=== PATIENT | female | born 1950 | race Caucasian/White ===

== ENCOUNTER → 2016-11-04 | Outpatient (CLI) | payer OTHER ==
[~2016-11-04] MED LIST: ACET-1138 PO; ASPEC325 PO; PRLSR20 PO; RXC5 PO
[2016-11-04 12:28] LABS: ESTIMATED AVERAGE GLUCOSE 126 mg/dl; HA1C FLAG Normal (Normal)
[2016-11-04 12:50] LABS: CHOLESTEROL/HDL RATIO 6.3
== END | disposition home or self-care (01) ==
LOC: C.LABPVFM 08:30
PROVIDERS: ATTEND Family Medicine
DX: Z00.00 Encounter for general adult medical examination without abnormal findings (principal); R73.01 Impaired fasting glucose

== ENCOUNTER → 2017-04-09 | Outpatient (CLI) | payer OTHER ==
[2017-04-09 13:29] LABS: ESTIMATED AVERAGE GLUCOSE 123 mg/dl; HA1C FLAG Normal (Normal)
[2017-04-09 13:32] LABS: CHOLESTEROL/HDL RATIO 5.6
== END | disposition home or self-care (01) ==
LOC: C.LABPVFM 08:10
PROVIDERS: ATTEND Family Medicine
DX: E78.5 Hyperlipidemia, unspecified (principal); R73.09 Other abnormal glucose

== ENCOUNTER → 2017-08-16 | Outpatient (CLI) | payer OTHER | END | disposition home or self-care (01) | LOC: C.PAPS 14:30 | PROVIDERS: ATTEND Obstetrics & Gynecology | DX: Z12.4 Encounter for screening for malignant neoplasm of cervix (principal) ==

== ENCOUNTER → 2017-08-17 | Outpatient (CLI) | payer OTHER ==
--- NOTE | 2017-08-17 16:01 | MAMMOGRAPHY REPORT ---
BILATERAL DIGITAL SCREENING MAMMOGRAM TOMOSYNTHESIS WITH CAD: 08/17/2017 TECHNIQUE: Breast tomosynthesis in addition to standard 2D mammography was performed. Current study was also evaluated with a Computer Aided Detection (CAD) system. COMPARISON: Comparison is made to exams dated: 08/16/2016 mammogram, 08/14/2015 mammogram, 08/13/2014 mammogram, 08/09/2013 mammogram, 08/02/2012 mammogram, and 07/14/2011 mammogram - [facility]. BREAST COMPOSITION: The tissue of both breasts is almost entirely fatty. FINDINGS: No suspicious masses, calcifications, or areas of architectural distortion are noted in ei ther breast. There has been no significant interval change compared to prior exams. Benign-appearing mass in the right upper outer anterior breast is stable to decreased compared to multiple prior exam s, and is therefore considered benign. IMPRESSION: ACR BI-RADS CATEGORY 2: BENIGN There is no mammographic evidence of malignancy. A 1 year screening mammogram is recommended. The pa tient will receive written notification of the results. Approximately 10% of breast cancers are not detected with mammography. A negative mammographic report should not delay biopsy if a clinically suggestive mass is present. Nerissa Zaragoza M.D. /:08/17/2017 09:21:46 Universal Grinder Operator: Ivy HENSLEY(Alicia)(M), [facility] letter sent: Normal 1/2 BI-RADS Code: ACR BI-RADS Category 2: Benign
== END | disposition home or self-care (01) ==
LOC: C.MAMM 08:43
PROVIDERS: ATTEND Obstetrics & Gynecology
DX: Z12.31 Encounter for screening mammogram for malignant neoplasm of breast (principal)

== ENCOUNTER → 2018-01-05 | Outpatient (CLI) | payer OTHER | END | disposition home or self-care (01) | LOC: C.MAMM 13:56 | PROVIDERS: ATTEND Family Medicine | DX: J01.00 Acute maxillary sinusitis, unspecified (principal); Z78.0 Asymptomatic menopausal state; M85.852 Other specified disorders of bone density and structure, left thigh ==

== ENCOUNTER 2021-10-26 05:03 | Observation (INO) ==
--- NOTE | 2021-04-01 12:01 | PAT Medication Instructions ---
Medication Instructions Date of Service April 01, 2021 Home Medications calcium 600 mg-D3 800 unit-mag11 50 gs-unpe-smfzgb-baldev-s.borat tablet (Caltrate 600-D Plus Minerals) 1 tab PO BID acetaminophen 650 mg tablet,extended release 1,300 mg PO Q12H PRN clobetasol 0.05 % topical ointment 1 appln TOP BID PRN metformin 500 mg tablet 500 mg PO BID omeprazole 20 mg capsule,delayed release 20 mg PO QAM STOP taking 24 hours before surgery clobetasol 0.05 % topical ointment 1 appln TOP BID PRN DO NOT take the morning of surgery calcium 600 mg-D3 800 unit-mag11 50 fl-eksv-huahwt-baldev-s.borat tablet (Caltrate 600-D Plus Minerals) 1 tab PO BID metformin 500 mg tablet 500 mg PO BID Take morning of surgery With a small sip of water, OTHERWISE NOTHING TO EAT OR DRINK AFTER MIDNIGHT: acetaminophen 650 mg tablet,extended release 1,300 mg PO Q12H PRN (okay to take up to 4 hours prior to surgery if needed) omeprazole 20 mg capsule,delayed release 20 mg PO QAM Take evening before surgery calcium 600 mg-D3 800 unit-mag11 50 mi-crou-zoqkzt-baldev-s.borat tablet (Caltrate 600-D Plus Minerals) 1 tab PO BID acetaminophen 650 mg tablet,extended release 1,300 mg PO Q12H PRN (if needed) metformin 500 mg tablet 500 mg PO BID Other Notes If you have any questions please call us at [phone] or [phone] or [phone] or [phone]
--- NOTE | 2021-04-03 11:20 | Anesthesiology Consultation ---
Date of Service April 03, 2021 Assessment & Plan (1) Encounter for pre-operative examination: - COVID screening: Per assessment on 04/03: Travel screen negative, no known COVID-19 positive contacts or current COVID-19 related symptoms. Patient was COVID positive 12/11/20 ([facility])> symptoms at time of chills, achiness, fever, diarrhea, loss of taste/smell > symptoms resolved, pt since fully vaccinated. Surgeon arranging preop COVID testing. Awaiting results. - S/P Right SILVER (03/30/16): SAB at L3-L4 (x1 attempt) at [facility]. Per anesthesia record pt "c/o nausea, pt diaphoretic, sat pt up, VSS, Zofran given, change mask to NC, after 1 min pt states feeling better, VSS, positioned per surgeon. No issues per post-op anesthesia progress note. - Check BSG AM DOS Chart Review Chart Review: Acceptable Risk for Surgery and Patient seen in Pre Admission Testing Teaching & Discussion Pre-Anesthesia Teaching/Discussion Notes: Instructed NPO after midnight before surgery,except medications with 15 cc of water. Medication instructions provided according to the PAT guidelines. History Surgery Operation Date: 05/26/21 08:50 Proposed Procedures p Left Total Knee Replacement - Carlos Sánchez MD Height/Weight Height: 5 ft 1 in Weight: 68 kg Allergies Allergy/AdvReac Type Severity Reaction Status Date / Time amoxicillin [From Augmentin] Allergy Mild Diarrhea Verified 04/01/21 08:01 clavulanic acid Allergy Mild Diarrhea Verified 04/01/21 08:01 [From Augmentin] clindamycin Allergy Mild Diarrhea Verified 04/01/21 08:01 Medications Home Medications Medication Instructions Recorded Confirmed Last Taken calcium 600 mg-D3 800 unit-mag11 1 tab PO BID 03/19/19 04/01/21 04/10/19 18:00 50 ji-svip-nxxpoj-baldev-s.borat tablet (Caltrate 600-D Plus Minerals) acetaminophen 650 mg 1,300 mg PO Q12H PRN 04/01/21 04/01/21 Unknown tablet,extended release clobetasol 0.05 % topical ointment 1 appln TOP BID PRN 04/01/21 04/01/21 Unknown metformin 500 mg tablet 500 mg PO BID 04/01/21 04/01/21 Unknown omeprazole 20 mg capsule,delayed 20 mg PO QAM 04/01/21 04/01/21 Unknown release Past Medical History Medical History Diabetes mellitus, type 2 NIDDM GERD without esophagitis History of COVID-19 Dx 12/11/20 ([facility])> symptoms at time of chills, achiness, fever, diarrhea, loss of taste/smell > symptoms resolved, pt since fully vaccinated Hyperlipidemia No meds Osteoporosis Rectocele Exercise / Class Metabolic Activity II 4-5 Yardwork/Stairs/Walk up hill (one FS (no CP, no SOB)) Past Family History Family History Father Colorectal cancer Other No family history of adverse response to anesthesia Denies family history of Ovarian cancer Prostate cancer Myocardial infarction Breast cancer Bleeding disorder Past Surgical History Surgical History History of appendectomy History of colonoscopy History of right knee surgery age 1.5 years ago (I&D infection) History of tonsillectomy History of total right hip replacement History of wisdom tooth extraction Past Anesthesia History No Hx of Anesthesia Complications (except PONV), No Family Hx of Anesthesia Complications and Other Right SILVER (03/30/16): SAB at L3-L4 (x1 attempt) at [facility] Per anesthesia record pt "c/o nausea, pt diaphoretic, sat pt up, VSS, Zofran given, change mask to NC, after 1 min pt states feeling better, VSS, positioned per surgeon. No issues per post-op anesthesia progress note. History of PONV No Hx of Motion Sickness and History of PONV Social History Smoking Status: Never smoker Do You Dip or Chew Tobacco: No Hx Alcohol Use: No Hx Substance Use: No substance use type: does not use Review of Systems Patient denies chest pain, shortness of breath, dyspnea on exertion, fever, chills, cough, wheezing, palpitations. Physical Exam Vital Signs VITALS BP 124/77 P 72 TEMP 98.1 SP02 96%RA RESP 16 PHYSICAL Full cervical extension range of motion. Full TMJ range of motion. TMD 3 finger breaths Mallampati Score 1 Dentition: intact, + crown Lungs: clear throughout to auscultation Cardiac: regular rate and rhythm, no murmurs noted Spine: normal Carotid arteries: negative bruit Extremities: no edema Lab Results Anesthesia Preop Results Results Anesthesia Widget: WBC 6.10 K/uL (4.8-10.8) 04/03/21 Hgb 13.9 g/dL (12.0-16.0) 04/03/21 Hct 40.5 % (37-47) 04/03/21 Plt 259 K/uL (130-400) 04/03/21 Na 142 mmol/L (136-145) 04/03/21 K 4.4 mmol/L (3.5-5.1) 04/03/21 Cl 111 mmol/L (98-107) H 04/03/21 CO2 27 mmol/L (21-32) 04/03/21 BUN 22 mg/dl (7-18) H 04/03/21 Creat 0.68 mg/dl (0.6-1.2) 04/03/21 Glucose Level 79 mg/dl (70-99) 04/03/21 PT 10.4 Seconds (9.0-12.0) 04/03/21 PTT 26.1 Seconds (21.0-31.0) 04/03/21 INR 1.0 (0.9-1.1) 04/03/21 HA1c 5.8 % (4.5-5.6) H 04/03/21 Blood Type O Positive 04/03/21 Antibody Screen NEGATIVE 04/03/21 Testing Electrocardiogram Date: 04/03/21 NSR at 68bpm. Low voltage QRS. No significant change compared to 02/12/16 per linux systems analyst review. Chest X-Ray Date: 04/03/21 Findings: + NAD
--- NOTE | 2021-10-22 15:53 | Anesthesiology Consultation ---
Date of Service October 22, 2021 Assessment & Plan (1) Encounter for pre-operative examination: Chart Review Chart Review: Acceptable Risk for Surgery (pending preop Covid testing results ) and Patient NOT seen in Pre Admission Testing - Check BSG AM DOS Per nursing assessment 09/09/2021, patient denies any recent travel. No known Covid infection in the past 90 days. Patient is fully vaccinated for Covid. No known Covid positive exposures or Covid related symptoms. Preop Covid testing results 10/22/21= results pending History Surgery Operation Date: 09/22/21 14:20 Proposed Procedures p Left Total Knee Replacement - Carlos Sánchez MD Operation Date: 10/26/21 07:15 Proposed Procedures p Left Total Knee Arthroplasty - Carlos Sánchez MD Height/Weight Height: 5 ft 1 in Weight: 67.132 kg Allergies Allergy/AdvReac Type Severity Reaction Status Date / Time amoxicillin [From Augmentin] AdvReac Mild Diarrhea Verified 09/10/21 09:56 clavulanic acid AdvReac Mild Diarrhea Verified 09/10/21 09:56 [From Augmentin] clindamycin AdvReac Mild Diarrhea Verified 09/10/21 09:56 Medications Home Medications Medication Instructions Recorded Confirmed Last Taken calcium 600 mg-D3 800 unit-mag11 1 tab PO BID 03/19/19 09/10/21 04/10/19 18:00 50 pd-cnyi-dfqnmx-baldev-s.borat tablet (Caltrate 600-D Plus Minerals) acetaminophen 650 mg 1,300 mg PO Q12H PRN 04/01/21 09/10/21 Unknown tablet,extended release omeprazole 20 mg capsule,delayed 20 mg PO QAM 04/01/21 09/10/21 Unknown release clobetasol 0.05 % topical ointment 1 applic TOP BID PRN #45 g 06/10/21 09/10/21 Unknown metformin 500 mg tablet 500 mg PO BID #60 tab 09/07/21 09/10/21 Unknown Past Medical History Medical History (Updated 10/22/21 @ 15:49 by Zoe Alvarenga PA-C) Blood pressure elevated without history of HTN Controlled per 06/2021 PCP note Diabetes mellitus, type 2 NIDDM GERD without esophagitis History of COVID-19 Dx 12/11/20 ([facility])> symptoms at time of chills, achiness, fever, diarrhea, loss of taste/smell > symptoms resolved, pt since fully vaccinated Hyperlipidemia No meds Osteoporosis Rectocele Past Family History Family History Father Colorectal cancer Other No family history of adverse response to anesthesia Denies family history of Ovarian cancer Prostate cancer Myocardial infarction Breast cancer Bleeding disorder Past Surgical History Surgical History History of appendectomy History of colonoscopy History of right knee surgery History of tonsillectomy History of total right hip replacement History of wisdom tooth extraction Past Anesthesia History Right SILVER (03/30/16): SAB at L3-L4 (x1 attempt) at [facility] Per anesthesia record pt "c/o nausea, pt diaphoretic, sat pt up, VSS, Zofran given, change mask to NC, after 1 min pt states feeling better, VSS, positioned per surgeon. No issues per post-op anesthesia progress note. Social History Smoking Status: Never smoker Do You Dip or Chew Tobacco: No Hx Alcohol Use: No Hx Substance Use: No substance use type: does not use Lab Results Anesthesia Preop Results Results Anesthesia Widget: WBC 6.37 K/uL (4.8-10.8) 10/22/21 Hgb 14.4 g/dL (12.0-16.0) 10/22/21 Hct 43.3 % (37-47) 10/22/21 Plt 263 K/uL (130-400) 10/22/21 Na 140 mmol/L (136-145) 10/22/21 K 3.9 mmol/L (3.5-5.1) 10/22/21 Cl 104 mmol/L (98-107) 10/22/21 CO2 30 mmol/L (21-32) 10/22/21 BUN 22 mg/dl (6-23) 10/22/21 Creat 0.77 mg/dl (0.6-1.2) 10/22/21 Glucose Level 101 mg/dl (70-99(Fasting)) H 10/22/21 PT 10.4 Seconds (9.0-12.0) 10/22/21 INR 1.0 (0.9-1.1) 10/22/21 Blood Type O Positive 10/22/21 Antibody Screen NEGATIVE 10/22/21 Testing Electrocardiogram Date: 04/03/21 NSR at 68bpm. Low voltage QRS. No significant change compared to 02/12/16 per technical education teacher review. Chest X-Ray Date: 04/03/21 Findings: + NAD
--- NOTE | 2021-10-24 09:59 | History and Physical Report ---
DATE OF ADMISSION: 10/26/2021. CHIEF COMPLAINT: Persistent left knee pain and discomfort. HISTORY OF PRESENT ILLNESS: The patient is a 71-year-old female who presents for surgical treatment of her left knee. She has got a long history of left knee pain and discomfort. She describes it has gotten worse over time. She has been through extensive conservative treatment including injections, which provided minimal relief for a short period of time. Pain is mostly medial. It increased with weightbearing. She has been scheduled for surgery multiple times. Scheduled the last year and then broke her humerus. She has recovered from that and now she has been rescheduled a couple times due to the COVID issues. Continues to be limited by her knee pain. She would now like to have her knee fixed. PAST MEDICAL HISTORY: Significant for: 1. Diabetes with an A1c of 5.7. 2. Low back pain/sciatica. PAST SURGICAL HISTORY: Includes: 1. Right hip replacement done by myself 03/30/2016. 2. Left knee arthroscopy done by Dr. Hester in 1997. ALLERGIES: None. CURRENT MEDICATIONS: 1. Metformin 500 mg twice a day. 2. Prilosec 20 mg. 3. Caltrate. SOCIAL HISTORY: A 71-year-old female. She is . Does not smoke. FAMILY HISTORY: Noncontributory. REVIEW OF SYSTEMS: Significant for diabetes pretty well controlled. No chest pain or shortness of b reath. No history of DVT or PE. PHYSICAL EXAMINATION: GENERAL: Shows a pleasant, fairly tiny female. HEENT: Benign. NECK: Supple. No lymphadenopathy. LUNGS: Clear to auscultation. HEART: Regular rate and rhythm. ABDOMEN: Soft, nontender, nondistended. EXTREMITIES: Grossly neurovascularly intact except as follows. Examination of the left knee reveals the patient ambulates with just a slight bit of a limp. She has got varus alignment to her knee. She has got bony hypertrophy medially. Small knee effusion. Rang e of motion is 5-125. No instability. No pain with hip motion. X-RAYS: X-rays of the left knee from previously reviewed. It shows advanced left knee degenerative joint disease. She has got complete loss of medial joint space. The rest of the knee looks pretty g ood. A little bit of subchondral sclerosis. Small osteophytes. ASSESSMENT: A 71-year-old white female with advanced left knee medial compartment degenerative joint disease. She has failed conservative treatment. She would like to have her left knee replaced. Brianna osullivan does have a history of right hip replacement in the past. She is also diabetic but with pretty wel l controlled blood glucoses. Also has a history of knee arthroscopy. PLAN: We are going to take her to the operating room and do left total knee replacement. The risks and benefits of this procedure were explained to the patient include but not limited to DVT, PE, deat h, infection, neurological injury, vascular injury, bleeding problem, pain, limited range of motion, stiffness, failure to relieve her symptoms, incomplete relief of symptoms, need for further surgery i n the future, fracture, leg length inequality, nerve palsy, etc. The patient understands and desires to proceed. Informed consent was obtained. Patient has had her hip replaced in the past. I did talk to her about knee replacement surgery and i t is typically a bit more painful, more difficult recovery than hip surgery. She is aware that. She knows to hold her metformin on the morning of surgery. Job ID: [id number]
[~2021-10-26 05:03] MED LIST changes: -ACET-1138 PO; +ACETAMINOPHEN 500 MG TAB PO SCH; -ASPEC325 PO; +BUPIVACAINE LIPOSOME/PF 266 MG, BUPIVACAINE/EPINEPHRINE 50 ML, SODIUM CHLORIDE 0.9% 30 ... INFIL SCH; +FAMOTIDINE 20 MG TAB PO SCH; +GABAPENTIN 300 MG CAP PO SCH; +LR 500ML BOLUS, THEN 15ML/HR IV SCH; +LR 60ML/HR IV SCH; -PRLSR20 PO; -RXC5 PO; +TRANEXAMIC ACID 1,000 MG **IV Intra-op IV SCH; +ceFAZolin 2000MG 2,000 MG/15 ML SYR IV SCH
[2021-10-26] MEDS ORDERED: TRANEXAMIC ACID 1,000 MG **IV Intra-op IV SCH (06:00)
[2021-10-26] MEDS ORDERED: ceFAZolin 2000MG 2,000 MG/15 ML SYR IV SCH (06:00)
[2021-10-26] MEDS ORDERED: FAMOTIDINE 20 MG TAB PO SCH (06:00)
[2021-10-26] MEDS ORDERED: ACETAMINOPHEN 500 MG TAB PO SCH (06:00)
[2021-10-26] MEDS ORDERED: LR 60ML/HR IV SCH (06:00)
[2021-10-26] MEDS ORDERED: BUPIVACAINE LIPOSOME/PF 266 MG, BUPIVACAINE/EPINEPHRINE 50 ML, SODIUM CHLORIDE 0.9% 30 ... INFIL SCH (06:00)
[2021-10-26] MEDS ORDERED: GABAPENTIN 300 MG CAP PO SCH (06:00)
[2021-10-26] MEDS ORDERED: fentaNYL citrate 100 MCG/2 ML VIAL ONE (06:26)
[2021-10-26] MEDS ORDERED: MIDAZOLAM HCL 1 MG/ML 2ML VIAL ONE (06:26)
[2021-10-26] MEDS ORDERED: LIDOCAINE 2% 2 ML VIAL/AMP(20MG/ML) INFIL ONE (06:33)
[2021-10-26] MEDS ORDERED: PROPOFOL IV EMULSION 10 MG/ML 20 ML VIAL IV ONE (06:33)
[2021-10-26] MEDS ORDERED: BUPIVACAINE 0.5 % 5 MG/1 ML PF 10ML VIAL ONE (06:38)
[2021-10-26] MEDS ORDERED: ROPIVACAINE 0.5% 5 MG/ML 30 ML VIAL ONE (06:38)
[2021-10-26] MEDS ORDERED: ONDANSETRON INJ 2 MG/ML 2 ML VIAL ONE (06:41)
[2021-10-26] MEDS ORDERED: HYDROmorphone INJ 2 MG/ML SYR/VIAL IV PRN (06:50)
[2021-10-26] MEDS ORDERED: ePHEDrine sulfate 50 MG/ML AMP IV PRN (06:50)
[2021-10-26] MEDS ORDERED: fentaNYL citrate 100 MCG/2 ML VIAL IV PRN (06:50)
[2021-10-26] MEDS ORDERED: ONDANSETRON INJ 2 MG/ML 2 ML VIAL IV PRN ×2 (06:50→10:04)
[2021-10-26] MEDS ORDERED: ATROPINE SULFATE 0.1 MG/ML 10ML SYR IV PRN (06:50)
[2021-10-26] MEDS ORDERED: SCOPOLAMINE 1 MG TDSY TD ONE (06:53)
[2021-10-26] MEDS ORDERED: SODIUM CHLORIDE 0.9% PF 50 ML VIAL ONE (06:57)
[2021-10-26] MEDS ORDERED: BUPIVACAINE/EPINEPHRINE 0.25% 1:200,000 30 ML VIAL ONE (06:57)
[2021-10-26] MEDS ORDERED: BUPIVACAINE LIPOSOME 1.3% 266 MG/20 ML VIAL ONE (06:58)
--- NOTE | 2021-10-26 07:02 | History & Physical Bridge Note ---
Date of Service October 26, 2021 History & Physical Bridge Note I have examined the patient, reviewed the History & Physical and in the interval since the performance of the History & Physical I have noted the following changes of clinical significance: no changes noted
[2021-10-26] MEDS ORDERED: DEXAMETHASONE SOD INJ 4 MG/ML VIAL ONE (08:20)
[2021-10-26] MEDS ORDERED: PHENYLEPHRINE HCL 10 MG/ML VIAL ONE (08:20)
[2021-10-26] MEDS ORDERED: METOCLOPRAMIDE HCL INJ 5 MG/ML 2 ML VIAL ONE (08:20)
--- NOTE | 2021-10-26 09:05 | Operative Report ---
PG Post Operative Report Pre & Post Diagnosis Operation Date: 09/22/21 14:20 <No data on this case meets the specified criteria> Operation Date: 10/26/21 07:15 Pre-Op Diagnosis: Left Knee Advanced Degenerative Joint Disease Post-Op Diagnosis: Left Knee Advanced Degenerative Joint Disease I identified the patient and participated in the time-out.: Yes Procedure Operation Date: 09/22/21 14:20 <No data on this case meets the specified criteria> Operation Date: 10/26/21 07:15 Actual Procedures p Left Total Knee Replacement(Left) - Carlos Sánchez MD Surgeon Carlos Sánchez MD Clock Smith Christ Ballard PA-C Estimated Blood Loss 50 Findings Consistent with Post-Op Diagnosis Operative findings were advanced left knee DJD. She extensive grade 4 [id number] disease of the medial femoral condyle medial tibial plateau. She pretty extensive grade 4 disease of the patellofemoral compartment as well. She had a varus deformity to her knee. Slight flexion contracture. Moderate-sized joint effusion. Fluids 1000 cc Specimens Left knee sent for pathology Drains None Anesthesia Type Spinal MAC Complications none Disposition Accompanied Patient To Recovery: No Indications Patient 71-year-old female has had a long history of a left knee pain discomfort describes gotten worse over the years. She is actually scheduled for knee replacement the past but fell and broke her humerus. This was then put off for a while. She continues to be debilitated by her knee pain. She now proceeds with total knee arthroplasty. She has recovered from her humerus fracture now. Description of Procedure Operative implants consist of: 1. Biomet Vanguard size 62.5 left posterior stabilized femoral component. 2. Biomet size 67 tibial tray. 3. 10 mm posterior stabilized polyethylene insert. 4. 28 x 8 all polypatella. The patient was taken to the operating, identified, and placed on the operating table supine position protectors were properly padded. IV antibiotics tried by anesthesia team. A spinal anesthetic and abductor canal block had provided in the holding area. A Bruner catheter was placed in sterile fashion. A left thigh turn was then placed in the left lower extremities and prepped draped in usual sterile fashion. The left leg was elevated exsanguinated with use of an Esmarch in terms playset 300 mmHg. An anterior approach left knee was then performed to longitudinal incision centered over the patella. Sharp dissection was carried through subcutaneous this down the extensor mechanism. A medial parapatellar arthrotomy incision was made. Some subperiosteal dissection was carried out medially. The fat pad was resected from each patella tendon. Lateral patellofemoral ligament was released. Patella was subluxated laterally and the knee was flexed. The osteophytes were taken off distal femur P the ACL and PCL were then released and distal femur the tibia subluxated anteriorly. The external tibial en bloc was then placed in the interface the tibia and adjusted 14 mm medially. Proximal tibial cut was made remove a millimeter or 2 of bone from most deficient aspect medial till plateau. Some osteophytes were taken off medial and posterior medially. We sized the tibia to a size 67. Attention drawn the femur. The distal femur was entered with a sharp drop with intramedullary canal was suction. A left 5 degree valgus cutting guide was placed. The distal femoral cutting block was pinned in place. Distal femoral cut was made to take an additional 3 mm of bone off distal femur. The femur was then sized to a size 62.5. The AP cutting block was pinned parallel to the epicondylar axis which was 5 degrees of external rotation. Anterior cut, anterior chamfer, posterior cut, posterior chamfer cuts were made. The box cutting guide was placed in just slight lateral box cut was made. The knee was flexed. The remnants of the medial and lateral menisci were excised. The osteophyte taken off the posterior aspect the femur. Trial femoral component was placed. The tibial tray was pinned in maximum external rotation and the drill and stem punch were used to create defect in proximal tibia for the tibial tray. Knee was then trialed and the 10 mm insert fit most appropriately. Attention drawn the patella. Patella was cleaned of all soft tissues. Patella thickness measured 21 mm in thickness was cut down to 12. Was sized to a size 28 patella. The lug holes w ere drilled for the 28 patella. The lateral osteophyte is moved. Patella button was placed. Knee was taken through range of motion patella tracked nicely with no thumbs test. Attention drawn to placing permanent components. All trial components were removed. Bone plug was placed into the distal femur limit blood loss. Double batch Palacos G cement was mixed. BiomCRAVEguard size 62.5 left posterior stabilized femoral component, size 67 tibial tray, a 10 mm posterior stabilized polyethylene insert, and a 28 x 8 all polypatella were then cemented in place. Knee was brought out into full extension total cement hardened. Final cement checkup then performed. The pericapsular tissues were injected with total 100 cc of combination of 20 cc of Exparel, 30 cc normal saline, 50 cc of quarter percent Marcaine with epinephrine. Patient did receive 1 g tranexamic acid. The tourniquet was let down for tourniquet time 51 minutes. Hemostasis assured use electrocautery. Wounds were cleansed and irrigated. The extensor mechanism closed with combination 1 PDS suture #1 Vicryl suture in [id number] fashion. Extensor mechanism checked found to be intact the subcutaneous tissue then closed with 2 Dexon suture in a buried fashion skin was closed skin tomeka. Leg was then cleaned and dried a sterile dressing both Xeroform, 4 x 4's, sterile cast padding, Dima bandage were applied. Patient then transferred to the recovery room in stable condition. Patient tolerated procedure well and there were no complications. Christ Ballard, my physician digital sales assistant, was present for the entire procedure. His assistance was essential and required for appropriate patient positioning, prepping and draping, surgical exposure, performing the technical details of the operation, placement the implants, closure of the wound, and placement of the sterile bandage. I attest to the content of the Intraoperative Record and any orders documented therein. Any exceptions are noted below.
--- NOTE | 2021-10-26 09:28 | XRay Report ---
XR knee LT 1 or 2V routine CLINICAL HISTORY: Postoperative evaluation. COMPARISON: Knee radiographs April 03, 2021. FINDINGS: Alignment of the total left knee arthroplasty is anatomic. No periprosthetic fracture or u nexpected radiopaque foreign body. There are skin tomeka. IMPRESSION: Expected findings following total left knee arthroplasty. ACT 112: Negative or not required by law. Electronically signed by: Bryant Dallas M.D. 10/26/2021 9:27 AM
[2021-10-26] MEDS ORDERED: METOCLOPRAMIDE HCL INJ 5 MG/ML 2 ML VIAL IV PRN (10:04)
[2021-10-26] MEDS ORDERED: bisacodyL 10 MG SUPP PR PRN (10:04)
[2021-10-26] MEDS ORDERED: GLUCOSE 10 TABS/TUBE PO PRN (10:04)
[2021-10-26] MEDS ORDERED: ALUMINUM/MAGNESIUM SUSP 30 ML UDC PO PRN (10:04)
[2021-10-26] MEDS ORDERED: PHARMACY GLYCEMIC MGMT CONSULT PRN (10:04)
[2021-10-26] MEDS ORDERED: GLUCOSE 40% GEL 15 GM TUBE PO PRN (10:04)
[2021-10-26] MEDS ORDERED: HYDROmorphone INJ 0.5 MG/0.5 ML SYR IV PRN (10:04)
[2021-10-26] MEDS ORDERED: CARBOHYDRATES FOR HYPOGLYCEMIA PO PRN (10:04)
[2021-10-26] MEDS ORDERED: DOCUSATE SODIUM/SENNA 50/8.6MG TAB PO SCH (10:04)
[2021-10-26] MEDS ORDERED: GLUCAGON FOR INJ 1 MG VIAL SQ PRN (10:04)
[2021-10-26] MEDS ORDERED: DEXTROSE 50% 50 ML SYRINGE IV PRN (10:04)
[2021-10-26] MEDS ORDERED: NALOXONE HCL 0.4 MG/1 ML VIAL/CARP IV PRN (10:04)
[2021-10-26] MEDS ORDERED: MAGNESIUM HYDROXIDE SUSP 30 ML UDC PO PRN (10:04)
[2021-10-26] MEDS ORDERED: oxyCODONE HCL IR 5 MG TAB (IMMEDIATE RELEASE) PO PRN (10:04)
--- NOTE | 2021-10-26 10:29 | Anesthesiology Progress Note ---
Date of Service October 26, 2021 Anesthesia Post Procedure Vital Signs Vital Signs: Temp Pulse Pulse Resp BP Pulse Ox 10/26/21 10:15 36.8 C 74 16 114/65 96 10/26/21 10:00 77 16 116/68 96 10/26/21 09:45 36.9 C 78 16 116/65 95 10/26/21 09:30 85 16 125/69 97 10/26/21 09:20 87 16 130/79 98 10/26/21 09:10 87 20 124/64 98 10/26/21 09:02 36.5 C 95 H 18 122/75 96 10/26/21 05:43 36.8 C 85 20 165/88 H 97 Transfer of Care Handoff Completed per policy Notes Mental Status: alert / awake / arousable and participated in evaluation Patient Amnestic to Procedure: Yes Nausea / Vomiting: adequately controlled Pain: adequately controlled Airway Patency, RR, SpO2: stable & adequate BP & HR: stable & adequate Hydration State: stable & adequate Anesthetic Complications: no major complications apparent and Pt Satisfied with anesthetic care
[2021-10-26] MEDS ORDERED: ONDANSETRON 4 MG OD TAB PO PRN (11:40)
[2021-10-26] MEDS ORDERED: CLOBETASOL PROPIONATE 0.05% OINT 15 GM TUBE EXT PRN (11:43)
--- NOTE | 2021-10-26 12:44 | Pharmacy Report ---
Pharmacy Glycemic Short Note 2 - Date of Service October 26, 2021 - Glycemic Short BSG Results (Last 24 hours): 10/26/21 10/26/21 05:34 09:05 POC Glucose 114 H 140 H OUTPATIENT ANTIDIABETIC REGIMEN: * Metformin 500 mg PO BIDM * HbA1c: 5.7% (06/04/22) ASSESSMENT: * TM is a 71 year old female POD #0 s/p left total knee arthroplasty * Received 4 mg IV dexamethasone intraoperatively, no ongoing steroids ordered * Given excellent HbA1c and reasonable postoperative BSG of 140 mg/dL, will hold off on basal/NPH insulin and use aggressive Novolog only with one overnight check * Likely restart metformin tomorrow morning PLAN FOR INPATIENT GLYCEMIC CONTROL: * Hold outpatient oral diabetes medications * Basal insulin * hold * Bolus insulin * NovoLog per scale ACHS or Q6hrs while NPO * Goal Range: Low 110 mg/dL - High 140 mg/dL * Correction Factor: 25 mg/dL/unit * Nutritional / Prandial insulin per carb ratio of 1 unit per 8 grams CHO consumed PLAN FOR DISCHARGE: * HbA1c of 5.7% is at goal for patient, continue outpatient metformin 500 mg PO BIDM at discharge
[2021-10-26] MEDS: KETOROLAC TROMETHAMINE 15 MG/ML VIAL IV SCH ×3 (12:59→23:39)
[2021-10-26] MEDS: SODIUM CHLORIDE 0.9% 1000ML 1,000 ML IV SCH ×2 (13:08→23:38)
[2021-10-26] MEDS: INSULIN ASPART PER UNIT SC SCH ×3 (13:38→21:00)
[2021-10-26] MEDS ORDERED: TRANEXAMIC ACID / 0.7% NACL 1,000 MG/100 ML BAG IV SCH (15:00)
[2021-10-26] MEDS: ASPIRIN 81 MG ECTAB PO SCH ×2 (15:05→20:32)
[2021-10-26] MEDS: ACETAMINOPHEN 500 MG TAB PO SCH ×2 (15:05→22:27)
[2021-10-26] MEDS: CALCIUM 600MG + VIT D 400 IU TAB PO SCH ×2 (15:05→20:31)
[2021-10-26] MEDS: ceFAZolin 1000MG 1,000 MG/7.5 ML SYR IV SCH ×3 (15:06→22:28)
[2021-10-26] MEDS: DOCUSATE SODIUM 100 MG CAP PO SCH ×2 (15:26→20:32)
[2021-10-26] MEDS: MULTIVITAMIN TAB PO SCH (15:26)
[2021-10-26] MEDS: metFORMIN HCL 500 MG TAB PO SCH (17:46)
[2021-10-26] MEDS: ASCORBIC ACID 500 MG TAB PO SCH (17:46)
[2021-10-26] MEDS ORDERED: SENNA 8.6 MG TAB PO SCH (21:00)
[2021-10-27] MEDS ORDERED: INSULIN ASPART PER UNIT SC SCH (02:00)
[2021-10-27] MEDS: ACETAMINOPHEN 500 MG TAB PO SCH ×2 (05:57→15:19)
[2021-10-27] MEDS: KETOROLAC TROMETHAMINE 15 MG/ML VIAL IV SCH ×2 (05:59→11:20)
[2021-10-27 06:31] LABS: Hematocrit (blood only) 34.6 % (37-47); Hemoglobin 11.5 g/dL (12.0-16.0); Mean Corpuscular Hemoglobin 30.5 pg (25-34); Mean Corpuscular Hgb Conc 33.2 g/dL (32-36); Mean Corpuscular Volume 91.8 fL (80-100); Mean Platelet Volume 11.3 fL (7.4-10.4); Platelet Count 216 K/uL (130-400); RDW Coefficient of Variation 13.2 % (11.5-14.5); RDW Standard Deviation 44.2 fL (36.4-46.3); Red Blood Count 3.77 M/uL (4.2-5.4); White Blood Count 11.33 K/uL (4.8-10.8)
[2021-10-27 06:56] LABS: BUN Creatinine Ratio 24.1 (10-20); Calcium 9.3 mg/dl (8.5-10.1); Creatinine Clr Calc Pharmacy 56.2 ml/min; Est GFR (African American) 86.7 ml/min; Est GFR (Non-African American) 74.8 ml/min; Potassium 3.6 mmol/L (3.5-5.1)
[2021-10-27] MEDS: ASPIRIN 81 MG ECTAB PO SCH (08:21)
[2021-10-27] MEDS: CALCIUM 600MG + VIT D 400 IU TAB PO SCH (08:21)
[2021-10-27] MEDS: ASCORBIC ACID 500 MG TAB PO SCH (08:21)
[2021-10-27] MEDS: metFORMIN HCL 500 MG TAB PO SCH (08:21)
[2021-10-27] MEDS: DOCUSATE SODIUM 100 MG CAP PO SCH (08:21)
[2021-10-27] MEDS: MULTIVITAMIN TAB PO SCH (08:21)
[2021-10-27] MEDS ORDERED: PANTOprazole 40 MG TAB PO SCH (09:00)
[2021-10-27] MEDS: INSULIN ASPART PER UNIT SC SCH ×2 (09:37→13:02)
--- NOTE | 2021-10-27 20:02 | Progress Notes ---
DATE OF SERVICE: 10/27/2021. SUBJECTIVE: A 71-year-old white female postoperative day 1 from a left knee replacement. She has do ne pretty well. Had a reasonable night. Some pain, but manageable. No chest pain or shortness of b reath. Not feeling dizzy or lightheaded. OBJECTIVE: VITAL SIGNS: Temperature 36.7. Vital signs are stable. PHYSICAL EXAMINATION: GENERAL: Shows a pleasant middle-aged female. She is sitting up in bed and looks pretty comfortable . LUNGS: Clear to auscultation. HEART: Regular rate and rhythm. ABDOMEN: Soft, nontender, nondistended. EXTREMITIES: Grossly neurovascularly intact except as follows: Examination of the left leg reveals the dressing to be clean, dry and intact. She can dorsiflex and plantarflex her foot appropriately. She can do a straight leg raise. NEUROLOGIC: She is neurologically intact. LABORATORY DATA: Hemoglobin 11.5, hematocrit 34.6. Electrolytes are stable. ASSESSMENT: A 71-year-old white female postoperative day 1 from left knee replacement, doing pretty well. Pain is controlled. She is neurologically intact. PLAN: 1. DVT prophylaxis includes thigh-high TEDs, SCDs, and aspirin twice a day. 2. PT, OT, weightbear as tolerated. Left total knee protocol. 3. Pain control, doing okay with current pain regimen. 4. Disposition: Plan to discharge to home with some home health today after therapy. Job ID: [id number]
--- NOTE | 2021-10-30 10:21 | Discharge Summary ---
Date of Service October 30, 2021 Discharge Data Procedures Performed Operation Date: 09/22/21 14:20 <No data on this case meets the specified criteria> Operation Date: 10/26/21 07:15 Actual Procedures p Left Total Knee Replacement(Left) - Carlos Sánchez MD Hospital Course (1) Status post total left knee replacement: Mari is a 71 year old patient admitted on 10/26/21 and underwent total knee arthroplasty. She tolerated the procedure well and there were no complications. Transferred to the PACU post op and later to the orthopedic floor for further care. She was given ancef for antibiotic prophylaxis. She was also given MARTIN stockings, SCDs, and aspirin for DVT prophylaxis. Hemoglobin, hematocrit, and vital signs were monitored during her hospital stay and remained stable. Did not require any blood transfusions. There were no complications during her hospital stay. By post op day #1 the patient was tolerating a diabetic diet, pain was reasonably controlled with oral pain medicine, and she was participating in physical therapy. On post op day #1 the patient was discharged home and set up with home health care. She was given printed discharge instructions including prescriptions for extra strength tylenol, aspirin, zofran, toradol, and oxycodone. Continue physical therapy, weight bearing as tolerated. Continue MARTIN stockings. Follow up approximately 2 weeks post op or sooner if there are problems or concerns. Coding Level of Care Code None Diagnoses Status post total left knee replacement Z96.652
== END 2021-10-27 16:46 | disposition home health service (06) ==
LOC: PACUINP 05:03 → ASU 05:03 → 3N 17:18